=== PATIENT | female | born 1965 | race Two or more races ===

== ENCOUNTER → 2019-01-02 | Outpatient (CLI) | payer OTHER | END | disposition home or self-care (01) | LOC: MRI 01-01 11:09 → RAD 01-01 11:09 → MRI 08:05 | DX: M54.89 Other dorsalgia (principal) | CPT/HCPCS: 72158 ==

== ENCOUNTER 2019-04-29 13:24 | Emergency (ER) | payer OTHER ==
[~2019-04-29] VITALS: Ht 157.5 cm; Wt 68.9 kg
[2019-04-29] MEDS ORDERED: HUMULIN 70100 UNIT/2 (15:11)
== END 2019-04-29 19:24 | disposition home or self-care (01) ==
LOC: ER 13:24
DX: J06.9 Acute upper respiratory infection, unspecified (principal)

== ENCOUNTER 2019-07-09 08:05 | Outpatient (CLI) | payer OTHER ==
[~2019-07-09 08:05] MED LIST: HUMULIN 70100 UNIT/2
== END 2019-07-09 14:20 | disposition home or self-care (01) ==
LOC: MAMO-SONO 08:05
DX: Z12.31 Encounter for screening mammogram for malignant neoplasm of breast (principal); Z87.898 Personal history of other specified conditions

== ENCOUNTER 2020-12-17 20:28 | Emergency (ER) | payer OTHER ==
[~2020-12-17] VITALS: Ht 154.9 cm; Wt 68.0 kg
[2020-12-17] MEDS ORDERED: AMOX-CLAV 875-1 EACH PO (21:48)
== END 2020-12-17 21:54 | disposition home or self-care (01) ==
LOC: ER 20:28
DX: L03.031 Cellulitis of right toe (principal); M79.674 Pain in right toe(s)

== ENCOUNTER 2021-03-03 14:56 | Emergency (ER) | payer OTHER ==
[~2021-03-03] VITALS: Ht 154.9 cm; Wt 72.1 kg
[~2021-03-03 14:56] MED LIST changes: +AMOX-CLAV 875-1 EACH PO
[2021-03-03] MEDS ORDERED: ADMELOG100 UNIT/1 (16:02)
== END 2021-03-03 20:08 | disposition home or self-care (01) ==
LOC: ER 14:56
DX: R05.8 Other specified cough (principal); R09.81 Nasal congestion; Z20.822 Contact with and (suspected) exposure to COVID-19

== ENCOUNTER 2024-12-11 07:17 | Outpatient (CLI) | payer OTHER ==
[~2024-12-11 07:17] MED LIST changes: +ADMELOG100 UNIT/1; +BACTRIM DS TAB1 EACH PO; +NORFLEX100MG PO
== END 2024-12-11 07:23 | disposition home or self-care (01) ==
LOC: SONOGRAMA 07:17
DX: S53.42 Ulnohumeral (joint) sprain (principal); M75.31 Calcific tendinitis of right shoulder

== ENCOUNTER 2024-12-31 07:24 | Outpatient (CLI) | payer OTHER | END 2024-12-31 07:30 | disposition home or self-care (01) | LOC: MAMO-SONO 07:24 | PROVIDERS: ATTEND Internal Medicine | DX: Z12.31 Encounter for screening mammogram for malignant neoplasm of breast (principal) ==